=== PATIENT | female | born 1955 | race Caucasian/White ===

== ENCOUNTER → 2017-02-01 | Outpatient (CLI) | payer BC ==
--- NOTE | 2017-02-01 15:08 | PCVCIMAG ---
APPROVED REPORT Exam: Stress Echocardiogram Indication: Chest Pain/ Pressure Patient Location: Echo lab Stress Nurse: Althea Nicholson RN Ht: 5 ft 1 in HR: 90 bpm BP: 114/64 mmHg Rhythm: NSR Medical History Medical History: Hyperlipidemia Procedure The patient underwent an Exercise Stress Test using the Malvin Protocol. Blood pressure, heart rate, and EKG were monitored. An Echocardiogram was performed by layout technician in four stages in quad fashion. At peak stress, four selected images were obtained and placed side by side with resting images for comparison. Stress Test Details Stress Test: Exercise stress testing was performed using a Malvin protocol. HR Resting HR: 90 bpmMax Heart Rate (APMHR): 159 bpm Max HR Achieved: 145 bpmTarget HR (85% APMHR): 135 bpm % of APMHR: 91 Recovery HR: 95 bpm HR response to stress: Normal HR response to stress BP Resting BP: 114/64 mmHg Max BP: 175/72 mmHg Recovery BP: 164/70 mmHg ECG Resting ECG: Sinus Rhythm Stress ECG: Sinus Rhythm ST Change: Non-ischemic Recovery ECG: Sinus Rhythm Recovery ST Change: Non-ischemic Clinical Reason for Termination: Maximal effort Stress Symptoms: Dyspnea, Fatigue Exercise duration: 6 min 00 sec Highest Stage Achieved: Stage 2: 2.5 mph at 12% grade. Exercise capacity: 7.20 METs Overall Exercise Capacity for Age: Poor Stress ECG Conclusion The patient exercised according to the MALVIN protocol for 6:00 min:s, achieving a work level of Max. METS 7.20. The resting heart rate of 77 bpm kt to a maximal heart rate of 145 bpm. This value represents 91% of the maximal, age-predicted heart rate. The resting blood pressure of 114/64 mmHg, kt to a maximum blood pressure of 178/72 mmHg. The exercise test was stopped due to fatigue and dyspnea. Pre-Stress Echo The resting Echocardiogram showed normal left ventricular contractility with an estimated Ejection Fraction of about >55%. Normal wall motion in all segments on baseline images. Post-Stress Echo The stress Echocardiogram showed normal left ventricular contractility with an estimated Ejection Fraction of about 60-65%. Normal augmentation of wall motion in all segments on post stress images. Clinical No clinical or ECG evidence for ischemia. Conclusion Clinical Response: Non-ischemic Exercise Capacity: Below Average Stress ECG Response: Non-ischemic Stress Echo Images: Non-ischemic The left ventricle is normal in size and wall thickness in both the rest and stress images. No prior study available for comparison. Other Information Study Quality: Good <Conclusion> The left ventricle is normal in size and wall thickness in both the rest and stress images.
== END | disposition home or self-care (01) ==
LOC: PCVCIMAG 12:50
PROVIDERS: ATTEND Internal Medicine Cardiovascular Disease
DX: I45.10 Unspecified right bundle-branch block (principal); I10 Essential (primary) hypertension; E66.9 Obesity, unspecified; E78.00 Pure hypercholesterolemia, unspecified; Z82.49 Family history of ischemic heart disease and other diseases of the circulatory system; Z85.3 Personal history of malignant neoplasm of breast; Z96.652 Presence of left artificial knee joint; Z88.0 Allergy status to penicillin; Z79.899 Other long term (current) drug therapy
CPT/HCPCS: 93325; 93351

== ENCOUNTER → 2019-04-16 | Outpatient (CLI) | payer BC ==
--- NOTE | 2019-04-16 19:14 | PCVCIMAG ---
APPROVED REPORT Study performed: 04/16/2019 13:54:39 Exam: Stress Echocardiogram Indication: Hypertension, Hyperlipidemia Stress Nurse: Nelda Diaz RN Status: routine Ht: 5 ft 1 in HR: 89 bpm BP: 170/94 mmHg Rhythm: NSR Medical History Medical History: History of breast cancer, chemo, radiation Procedure The patient underwent an Exercise Stress Test using the Malvin Protocol. Blood pressure, heart rate, and EKG were monitored. An Echocardiogram was performed by explosive technician in four stages in quad fashion. At peak stress, four selected images were obtained and placed side by side with resting images for comparison. Stress Test Details Stress Test: Exercise stress testing was performed using a Malvin protocol. HR Resting HR: 89 bpmMax Heart Rate (APMHR): 157 bpm Max HR Achieved: 157 bpmTarget HR (85% APMHR): 133 bpm % of APMHR: 100 Recovery HR: 95 bpm HR response to stress: Normal HR response to stress BP Resting BP: 170/94 mmHg Max BP: 200/88 mmHg Recovery BP: 95/ mmHg BP response to stress: Normal blood pressure response to stress. ECG Resting ECG: Sinus Rhythm Stress ECG: Sinus Rhythm Recovery ECG: Sinus Rhythm Clinical Reason for Termination: Maximal effort Exercise duration: 5 min sec Highest Stage Achieved: Stage 2: 2.5 mph at 12% grade. Exercise capacity: 7.00 METs Overall Exercise Capacity for Age: Poor Pre-Stress Echo The resting Echocardiogram showed normal left ventricular contractility with an estimated Ejection Fraction of about >55%. Post-Stress Echo The stress Echocardiogram showed normal left ventricular contractility with an estimated Ejection Fraction of about 60-65%. Normal augmentation of wall motion in all segments on post stress images. Clinical No clinical or ECG evidence for ischemia. Conclusion Clinical Response: Non-ischemic Exercise Capacity: Below Average Stress ECG Response: Non-ischemic Stress Echo Images: Non-ischemic The left ventricle is normal in size and wall thickness in both the rest and stress images. Trace mitral regurgitation, No other significant valvular abnormalites. Other Information Study Quality: Technically Difficult <Conclusion> The left ventricle is normal in size and wall thickness in both the rest and stress images. Trace mitral regurgitation, No other significant valvular abnormalites.
== END | disposition home or self-care (01) ==
LOC: PCVCIMAG 13:54
PROVIDERS: ATTEND Internal Medicine Cardiovascular Disease
DX: I25.10 Atherosclerotic heart disease of native coronary artery without angina pectoris (principal); I10 Essential (primary) hypertension; E78.5 Hyperlipidemia, unspecified; G47.33 Obstructive sleep apnea (adult) (pediatric)
CPT/HCPCS: 93325; 93351